=== PATIENT | male | born 2000 | race Caucasian/White ===

== ENCOUNTER 2022-01-19 14:28 | Emergency (ER) | payer OTHER, SELFPAY ==
--- NOTE | ~2022-01-19 | XR_ITS ---
EXAMINATION: XR elbow LT min 3V DATE: 01/19/2022 14:53 INDICATION: Left elbow pain, initial encounter TECHNIQUE: Anteroposterior, two oblique and lateral views of the left elbow were obtained. COMPARISON: None. FINDINGS: There is an acute, traumatic, oblique, intra-articular fracture of the radial head. There i s a large elbow joint effusion. Posterior soft tissue swelling is seen at the elbow. No additional ac ag osseous abnormality is identified. IMPRESSION: 1. Acute intra-articular fracture of the radial head with large joint effusion. Reviewed, dictated and finalized at location A.
--- NOTE | ~2022-01-19 | XR_ITS ---
EXAMINATION: XR wrist RT min 3V INDICATION: Right wrist pain, initial encounter TECHNIQUE: Four views of the right wrist are obtained. COMPARISON: None available FINDINGS: There is an acute, traumatic, closed fracture of the triquetrum. Bone alignment is normal. No additional fracture is identified. Soft tissue swelling is seen near the fracture. IMPRESSION: 1. Acute fracture of the triquetrum. Reviewed, dictated and finalized at location A.
[2022-01-19 14:36] VITALS: BP 153/97; PULSE 97; RESP 14; TEMP 36.7; O2SAT 100
--- NOTE | 2022-01-19 16:06 | ED.UPPEXIN ---
HPI - Extremity Injury (Upper) General Chief Complaint: Extremity Injury, Upper Stated Complaint: left elbow injury Time Seen by Provider: 01/19/22 15:21 History of Present Illness HPI narrative: Patient is a 21-year-old male who presents ER with pain to the right wrist and left elbow. Patient had finished mowing the lawn and was jumping over fence when he lost his balance and landed on his arms. Did not strike his head or lose consciousness. Had sudden onset pain in the right wrist. He then developed increasing pain and decreased range of motion left elbow. No numbness or tingling in the affected extremities. Related Data Allergies Allergy/AdvReac Type Severity Reaction Status Date / Time No Known Allergies Allergy Verified 01/19/22 14:29 Review of Systems Review of Systems: All systems reviewed & are unremarkable except as noted in HPI and below Musculoskeletal: Musculoskeletal: Reports arthralgias, Reports joint swelling and Denies muscle cramps Integumentary/Breasts: Skin/Breast: Denies erythema and Denies rash Neurologic: Denies syncope, Denies headache(s), Denies focal weakness and Denies numbness PMFSH Past Medical History Medical History (Updated 01/19/22 @ 22:49 by Florentin Ott MD) Healthy adult male Surgical History Surgical History (Updated 01/19/22 @ 22:49 by Florentin Ott MD) No pertinent past surgical history Social History Social History (Updated 01/19/22 @ 22:49 by Florentin Ott MD) Smoking status: Never smoker Exam Narrative: GENERAL: Well-appearing, well-nourished, and in no acute distress. HEAD: Normocephalic, atraumatic. HEART: Regular rate and rhythm. Normal peripheral pulses. EXTREMITIES: Tender palpation of the dorsum of the right wrist. Patient has decent range of motion with flexion extension despite swelling and slight abrasions. Patient also has tenderness at the left radial head and does not want to perform range of motion with flexion extension due to discomfort, he is more willing to perform pronation supination but does have pain as well Both upper extremities are neurovascularly intact. SKIN: Warm, dry, no rash. NEURO: No focal deficits. Alert and oriented x3. PSYCH: Normal mood and affect. Course Course Emergency Course: Informed of results. Follow-up with orthopedic surgery. Left arm in sling. Right wrist in volar splint. Vital Signs Vital signs: Vital Signs Temperature 98.0 F 01/19/22 14:36 Pulse Rate 97 01/19/22 14:36 Respiratory Rate 14 01/19/22 14:36 Blood Pressure 153/97 H 01/19/22 14:36 Pulse Oximetry 100 01/19/22 14:36 Oxygen Delivery Room Air 01/19/22 14:36 Temperature 98.0 F 01/19/22 14:36 Pulse Rate 97 01/19/22 14:36 Respiratory Rate 14 01/19/22 14:36 Blood Pressure 153/97 H 01/19/22 14:36 Pulse Oximetry 100 01/19/22 14:36 Oxygen Delivery Room Air 01/19/22 14:36 Procedures Orthopedic Splinting/Casting Injury #1: Splinting/Casting Date: 01/19/22 Splinting/Casting Time: 16:10 Side: right Upper Extremity Injury Location: wrist Upper Extremity Immobilizer: volar splint Splint: customized in ED OCL: volar Pre-Procedure Neuro Vascular Exam: normal Post-Procedure Neuro Vascular Exam: normal MDM - Extremity Injury (Upper) Imaging Data Radiologist's impression: ITS Impressions Wrist X-Ray 01/19/22 14:59 IMPRESSION: 1. Acute fracture of the triquetrum. Elbow X-Ray 01/19/22 15:03 IMPRESSION: 1. Acute intra-articular fracture of the radial head with large joint effusion. Discharge Plan Discharge Clinical Impression: Fracture of triquetral bone of right wrist, Closed fracture of head of left radius Patient Disposition: Home, Self-Care Condition: Stable Instructions: Elbow Fracture (ED), Wrist Fracture in Adults (ED) Additional Instructions: Return the ER if you suffer new injury, you
== END 2022-01-19 16:21 | disposition home or self-care (01) ==
PROVIDERS: Emergency Provider Emergency Medicine; PCP Pediatrics
DX: S62.111A Displaced fracture of triquetrum [cuneiform] bone, right wrist, initial encounter for closed fracture (principal); S52.122A Displaced fracture of head of left radius, initial encounter for closed fracture; W18.39XA Other fall on same level, initial encounter
CPT/HCPCS: 29125; 73080; 73110; 99284; A4565